=== PATIENT | male | born 1970 | race Caucasian/White ===

== ENCOUNTER 2023-03-20 06:41 | Outpatient (OUT) | payer OTHER, SELFPAY ==
[2023-03-20 07:44] LABS: Basophils Absolute Auto 0.1 10^3/uL (0.0-0.1); Eosinophils Absolute Auto 0.3 10^3/uL (0.0-0.7); Eosinophils Percent Auto 6.4 % (0.9-7.0); Hematocrit 41.1 % (42.0-54.0); Hemoglobin 13.9 g/dL (14.0-18.0); Immature Granulocytes Abs Auto 0.01 10^3/uL (0.00-0.03); Immature Granulocytes Pct Auto 0.2 % (0.0-0.5); Lymphocytes Absolute Auto 1.6 10^3/uL (1.2-3.8); Lymphocytes Percent Auto 31.8 % (20.5-60.0); Mean Corpuscular HGB Conc 33.8 g/dL (29.9-35.2); Mean Corpuscular Volume 85.8 fL (80.0-94.0); Mean Platelet Volume 9.6 fL (9.5-13.5); Monocytes Absolute Auto 0.6 10^3/uL (0.3-0.8); Monocytes Percent Auto 10.9 % (1.7-12.0); Neutrophils Absolute Auto 2.6 10^3/uL (1.4-6.5); Neutrophils Percent Auto 49.7 % (43.0-75.0); Platelet Count 157 10^3/uL (150-450); Red Blood Count 4.79 10^6/uL (4.70-6.10); Red Cell Distribution Width 13.5 % (11.0-15.0); White Blood Count 5.1 10^3/uL (4.0-11.0)
[2023-03-20 08:05] LABS: Alanine Aminotransferase 102 U/L (16-63); Albumin Globulin Ratio 0.9; Albumin Level 3.6 g/dL (3.4-5.0); Alkaline Phosphatase 57 U/L (46-116); Anion Gap 10.7; Aspartate Amino Transferase 67 U/L (15-37); Bilirubin Total 0.9 mg/dL (0.2-1.0); Calcium 8.7 mg/dL (8.5-10.1); Chloride 101 mmol/L (98-107); Estimated GFR (African America >60 (>=60); Estimated GFR (Non-African Ame >60 (>=60); Globulin 3.8 g/dL; Glucose 96 mg/dL (74-106); Potassium 3.7 mmol/L (3.5-5.1); Sodium 139 mmol/L (136-145); Total Protein 7.4 g/dL (6.4-8.2)
== END 2023-03-20 06:42 | disposition home or self-care (01) ==
LOC: LAB 06:45
PROVIDERS: PCP Internal Medicine; Visit Provider Internal Medicine
DX: Z00.00 Encounter for general adult medical examination without abnormal findings (principal); Z12.5 Encounter for screening for malignant neoplasm of prostate
CPT/HCPCS: 36415; 80053; 85025; G0103

== ENCOUNTER 2023-09-23 06:22 | Outpatient (OUT) | payer OTHER, SELFPAY ==
--- OUTSIDE RECORDS SUMMARY | 2023-09-23 06:26 | XMS_ITS | CCD ---
Author Organization [facility] Care Team Providers Care Entertainment Agent Name Role Phone Nohelia Adam Primary Care Provider [phone] OTILIO GARCIA Referring Unavailable NOHELIA ADAM Primary Care Unavailable NOHELIA ADAM Primary Care Unavailable NOHELIA ADAM Referring Unavailable NOHELIA ADAM Primary Care Unavailable NAZEMI, MEHRAN I Referring Unavailable NAZEMI, MEHRAN I Attending Unavailable NADJA, MEHRAN I Admitting Unavailable NOHELIA ADAM Primary Care Unavailable NOHELIA ADAM Primary Care Unavailable NAZEMI, MEHRAN I Referring Unavailable Lydia Dueñas Unavailable Medications Current Medications Medication Drug Class(es) Dates Sig (Normalized) Sig (Original) acetaminophen 325 mg / HYDROcodone bitartrate 5 mg oral tablet (1 source) Opioid Agonist Start: 06-15-2020 End: 06-18-2020 take 1 tablet by mouth every four hours as needed for pain, then take 1 tablet by mouth as needed for pain HYDROcodone-acetami nophen (NORCO) 5-325 MG per tablet Indications: Acute postoperative pain Take 1 tablet by mouth every 4 hours as needed for Pain for up to 3 days. Intended supply: 3 days. Take lowest dose possible to manage pain 18 tablet 0 06/15/2020 06/18/2020 Active Aspir-81 (1 source) Aspir-81 Active aspirin 81 mg oral tablet (5 sources) Platelet Aggregation Inhibitor, Nonsteroidal Anti-inflammatory Drug take 1 tablet by mouth once daily aspirin 81 MG tablet Take 81 mg by mouth daily 0 Active calcium chloride 0.0014 meq/ml / potassium chloride 0.004 meq/ml / sodium chloride 0.103 meq/ml / sodium lactate 0.028 meq/ml injectable solution (2 sources) Start: 06-15-2020 lactated ringers infusion 2 ml fentaNYL 0.05 mg/ml injection (2 sources) Opioid Agonist Start: 06-15-2020 50 mcg, Intravenous, EVERY 5 MIN PRN, Pain Severe (7-10), Starting Laura 06/15/20 at 1214, For 4 doses Phase I - Initial therapy for severe pain. PACU only Start: 06-15-2020 25 mcg, Intrav enous, EVERY 5 MIN PRN, Pain Moderate (4-6), Starting Laura 06/15/20 at 1214, For 4 doses Phase I - Initial therapy for moderate pain. PACU only fexofenadine / Pseudoephedrine (5 sources) alpha-Adrenergic Agonist, Histamine-1 Receptor Antagonist Fexofenadine-Pseudoe phedrine (HOANG-D PO) Take by mouth daily 0 Active Fexofenadine-Pse udoephedrine (HOANG-D PO) Take by mouth daily as needed 0 Active fluticasone propionate 0.05 mg/actuat metered dose nasal spray (5 sources) Corticosteroid fluticasone (SHANNON NASE) 50 MCG/ACT nasal spray 1 spray by Nasal route 2 times daily 0 Active fluticasone (SHANNON NASE) 50 MCG/ACT nasal spray 1 spray by Nasal route daily 0 Active hydroCHLOROthiazide 25 mg / lisinopril 20 mg oral tablet (6 sources) Thiazide Diuretic, Angiotensin Converting Enzyme Inhibitor Start: 05-11-2020 take 1 tablet by mouth once daily lisinopril-hydroCHLOROthiazide (PRINZIDE;ZESTORETIC) 20-25 MG per tablet TAKE 1 TABLET BY MOUTH DAILY 90 tablet 3 05/11/2020 Active Lisinopril-hydro CHLOROthiazide 20-25 MG (Prior Auth#:[id number]) Oral for 90 Active omeprazole 20 mg delayed release oral capsule (5 sources) Proton Pump Inhibitor omeprazole (PRILOSEC) 20 MG capsule Take 20 mg by mouth as needed 0 Active ondansetron 4 mg oral tablet (2 sources) Serotonin-3 Receptor Antagonist Start: take 1 tablet by mouth every eight hours as needed for nausea ondansetron (ZOFRAN) 4 MG tablet Take 1 tablet by mouth every 8 hours as needed for Nausea or Vomiting 15 tablet 0 06/15/2020 Active Start: 06-15-2020 End: 06-15-2020 4 mg, Intravenous, ONCE PRN, Nausea, Starting Laura 06/15/20 at 1214, For 1 dose Initial antiemetic therapy. PACU only Completed/Discontinued Medications Medication Drug Class(es) Dates Sig (Normalized) Sig (Original) acetaminophen 325 mg oral tablet (1 source) Start: 06-15-2020 End: 06-15-2020 acetaminophen (TYLENOL) tablet 650 mg ceFAZolin 2000 mg injection (1 source) Cephalosporin Antibacterial Start: 06-15-2020 End: 06-15-2020 ceFAZolin (ANCEF) 2 g in dextrose 3 % 50 mL IVPB (duplex) dimenhyDRINATE 50 mg oral tablet (1 source) Start: 06-15-2020 End: 06-15-2020 dimenhyDRINATE (DRAMAMINE) tablet 50 mg iopamidol (ISOVUE-370) 76 % injection 18 mL (1 source) Start: 05-16-2020 End: 05-16-2020 iopamidol (ISOVUE-370) 76 % injection 18 mL oxyCODONE hydrochloride 5 mg oral tablet (1 source) Opioid Agonist Start: 06-15-2020 End: 06-15-2020 take 5 mg by mouth once as needed for pain 5 mg, Oral, ONCE PRN, Pain Moderate (4-6), Starting Laura 06/15/20 at 1214, For 1 dose PHASE II PACU only Problems Active Problems Problem Classification Problem Date Documented Date Episodic/Chronic Abdominal hernia (4 sources) Hernia of anterior abdominal wall; Translations: [Bilateral inguinal hernia] Onset: 06-15-2020 06-15-2020 Episodic Abdominal pain (1 source) Left lower quadrant pain; Translations: [Left lower quadrant pain] Episodic Esophageal disorders (5 sources) Gastroesophageal reflux disease; Translations: [GERD (gastroesophageal reflux disease)] 09-14-2015 Chronic Essential hypertension (5 sources) Hypertensive disorder; Translations: [Hypertension] 09-14-2015 Chronic Other nervous system disorders (1 source) Acute postoperative pain; Translations: [Acute postoperative pain] Episodic Other upper respiratory disease (5 sources) Allergic rhinitis; Translations: [Allergic rhinitis] 09-14-2015 Chronic Past or Other Problems Problem Classification Problem Date Documented Da te Episodic/Chronic Immunizations and screening for infectious disease (1 source) Contact with and (suspected) exposure to other viral communicable diseases Onset: 09-14-2021 Resolved: 09-14-2021 Episodic Unclassified (7 sources) Patient encounter status; Translations: [Colon cancer screening] Onset: 11-22-2018 Resolved: 01-03-2019 01-03-2019 Viral infection (1 source) COVID-19 Onset: 09-14-2021 Resolved: 09-14-2021 Results Test Name Value Interpretation Reference Range Facility COMPREHENSIVE METABOLIC PANE L WITH GFRon 04-27-2022 Albumin [Mass/Vol] 4.2 g/dL Normal 3.5-5.2 [facility] ALK PHOS 56 U/L Normal 40-121 [facility] ALT [Catalytic activity/Vol] 73 U/L High 5-50 [facility] Anion gap [Moles/Vol] 10.0 mmol/L Normal 7.0-16.0 [facility] Comment on above: Result Comment: Please note new reference range effective 2021 AST-SGOT 44 U/L Normal 9-50 [facility] Bilirubin.direct [Mass/Vol] 0.6 mg/dL Normal <=1.2 [facility] Calcium [Mass/Vol] 9.4 mg/dL Normal 8.5-10.5 [facility] Chloride [Moles/Vol] 102 mmol/L Normal 95-107 [facility] CO2 [Moles/Vol] 29 mmol/L Normal 19-31 [facility] Creatinine [Mass/Vol] 1.13 mg/dL Normal 0.80-1.40 [facility] GFR/1.73 sq M.predicted among non-blacks MDRD (S/P/Bld) [Vol rate/Area] 78 mL/min/{1.73_m2} Normal >60 [facility] Glucose [Mass/Vol] 86 mg/dL Normal 70-99 [facility] Potassium [Moles/Vol] 3.9 mmol/L Normal 3.5-5.4 [facility] Protein [Mass/Vol] 6.8 g/dL Normal 6.1-8.3 [facility] Sodium [Moles/Vol] 141 mmol/L Normal 133-146 [facility] Urea nitrogen [Mass/Vol] 19 mg/dL Normal 6-20 [facility] PSA, 3RD GENERATIONon 2021 PSA, 3RD GENERATION 0.45 ng/mL Normal <=4.00 [facility] Comment on above: Result Comment: NOTE: Methodology is Michelle Jeron[employer] Electrochemiluminescence Immunoassay traceable to WHO reference standard 96/760. Pathology [employer] [address] [place] [address] CLIA No. [id number] CAP Accreditation No. [id number] Project Management Advisor: Mercedes Smith M.D. CBC W/AUTO DIFFon 04-26-2022 ABS NEUTROPHILS 2.56 K/uL Normal 1.50-7.50 [facility] Basophils (Bld) [#/Vol] 0.05 10*3/uL Normal 0.00-0.20 [facility] Basophils/100 WBC (Bld) 1.0 % Normal [facility] Eosinophils (Bld) [#/Vol] 0.36 10*3/uL Normal 0.00-0.50 [facility] Eosinophils/100 WBC (Bld) 6.9 % Normal [facility] Erythrocyte distribution width (RBC) [Ratio] 14.1 % Normal 11.5-15.0 [facility] Hematocrit (Bld) [Volume fraction] 38.9 % Low 40.0-51.0 [facility] Hemoglobin (Bld) [Mass/Vol] 13.2 g/dL Low 13.5-17.0 [facility] Lymphocytes (Bld) [#/Vol] 1.68 10*3/uL Normal 1.00-4.00 [facility] Lymphocytes/100 WBC (Bld) 32.3 % Normal [facility] MCH (RBC) [Entitic mass] 29.1 pg Normal 25.0-33.0 [facility] MCHC (RBC) [Mass/Vol] 33.9 g/dL Normal 31.0-36.0 [facility] MCV (RBC) [Entitic vol] 85.9 fL Normal 80.0-99.0 [facility] Monocytes (Bld) [#/Vol] 0.54 10*3/uL Normal 0.20-1.00 [facility] Monocytes/100 WBC (Bld) 10.4 % Normal [facility] Neutrophils/100 WBC (Bld) 49.2 % Normal [facility] Platelet mean volume (Bld) [Entitic vol] 10.4 fL Normal 9.3-13.0 [facility] Platelets (Bld) [#/Vol] 176 10*3/uL Normal 130-400 [facility] RBC (Bld) [#/Vol] 4.53 10*6/uL Normal 4.50-6.10 [facility] WBC (Bld) [#/Vol] 5.2 10*3/uL Normal 3.5-11.0 [facility] COVID Quick Testingon 2021 Result Positive [employer] Other Surgical Pathologyon Surgical Pathology (NOTE) -- Diagnosis -- LEFT SPERMATIC CORD SOFT TISSUE, EXCISION:-LIPOMA. Denton Chatman M.D Electronically Signed Out tanna06/19/2020 Clinical Information Pre-op Diagnosis: BILATERAL INGUINAL HERNIA Operative Findings: LARGE LEFT SPERMATIC CORD LIPOMA Operation Performed: HERNIA INGUINAL REPAIR LAPAROSCOPIC ROBOTIC WITH MESH, TESTICULAR LESION BIOPSY EXCISION OF LARGE LEFT CORD LIPOMA Source of Specimen 1: LARGE LEFT SPERMATIC CORD LIPOMA Gross Description WAYLON MADRIGAL, LARGE LEFT SPERMATIC CORD LIPOMA 9.5 x 4.5 x 2.0 cm portio of lobular fatty tissue with no hemorrhage or necrosis. Home Improvement Contractor sections 1cs. tm Microscopic Description Microscopic examination performed. SURGICAL PATHOLOGY CONSULTATION Patient Name: WAYLON MADRIGAL. [facility] Rec: [id number] Path Number: [id number] [facility] CONSULTING PATHOLOGISTS [facility] [address] [place] [id number] [facility] Comment on above: Performed By: #### P PPVS #### [address] [id number] Build Engineer: Myles Fraser MD COVID-19on 06-11-2020 Source .NASOPHARYNGEAL SWAB [place] [id number] 06-11-2020 SARS-CoV-2 Normal [place], [place] Comment on above: Performed By: #### C OVID #### [address] [id number] Build Engineer: Myles Fraser MD [address] [place] [address] Build Engineer: Denton Chatman MD SARS-CoV-2 Not Detected Normal [facility] [place], [place] Comment on above: The specimen is NEGATIVE for SARS-CoV-2, the novel coronavirus associated with COVID-19. A negative result does not rule out COVID-19. [employer] SARS-CoV-2 for use on the Jeron[employer]/8800 Systems is a real-time RT-PCR test intended for the qualitative detection of nucleic acids from SARS-CoV-2 in clinician-collected nasal, nasopharyngeal, and oropharyngeal swab specimens from individuals who meet COVID-19 clinical and/or epidemiological criteria. [employer] SARS-CoV-2 is for use only under Emergency Use Authorization (EUA) in laboratories certified under Clinical Laboratory Improvement Amendments of 1988 (CLIA), 42 U.S.C. 263a, that meet requirements to perform high or moderate complexity tests. An individual without symptoms of COVID-19 and who is not shedding SARS-CoV-2 virus would expect to have a negative (not detected) result in this assay. Fact sheet for Healthcare Providers: https://www.fda.gov/media/399727/download Fact sheet for Patients: https://www.fda.gov/media/609066/download METHODOLOGY: RT-PCR Result Comment: The specimen is NEGATIVE for SARS-CoV-2, the novel coronavirus associated with COVID-19. A negative result does not rule out COVID-19. [employer]imo SARS-CoV-2 for use on the Jeronimo 6800/8800 Systems is a real-time RT-PCR test intended for the qualitative detection of nucleic acids from SARS-CoV-2 in clinician-collected nasal, nasopharyngeal, and oropharyngeal swab specimens from individuals who meet COVID-19 clinical and/or epidemiological criteria. [employer] SARS-CoV-2 is for use only under Emergency Use Authorization (EUA) in laboratories certified under Clinical Laboratory Improvement Amendments of 1988 (CLIA), 42 U.S.C. ?263a, that meet requirements to perform high or moderate complexity tests. An individual without symptoms of COVID-19 and who is not shedding SARS-CoV-2 virus would expect to have a negative (not detected) result in this assay. Fact sheet for Healthcare Providers: https://www.fda.gov/media/673413/download Fact sheet for Patients: https://www.fda.gov/media/705112/download METHODOLOGY: RT-PCR Performed By: #### C OVID #### [facility] [address] [place] [address] Build Engineer: Myles Fraser MD [facility] [address] [place] [address] [place] [address] Build Engineer: Denton Chatman MD SARS-CoV-2, Rapid Normal [place], [place] Comment on above: Performed By: #### C OVID #### [facility] [address] [place] [address] Build Engineer: Myles Fraser MD [address] [place] [address] Build Engineer: Denton Chatman MD [id number] 06-09-2020 SARS-CoV-2 Source .NASOPHARYNGEAL SWAB Normal [facility] Comment on above: Performed By: #### C OVID #### [facility] [address] [place] [address] Build Engineer: Myles Fraser MD [address] [place] [address] Build Engineer: Denton Chatman MD Basic Metabolic Panelon Anion gap [Moles/Vol] 10 mmol/L 9 - 17 mmol/L [place] Bun/Cre Ratio [address] [place], [place] Calcium [Mass/Vol] 9.7 mg/dL 8.6 - 10.4 mg/dL [place] Chloride [Moles/Vol] 97 mmol/L Low 98 - 107 mmol/L [place] CO2 [Moles/Vol] 30 mmol/L 20 - 31 mmol/L [place] Creatinine [Mass/Vol] 1.27 mg/dL High 0.7 - 1.2 mg/dL [place] GFR >60 >60 mL/min [place] GFR Non- 60 mL/min Low >60 [place] Glucose [Mass/Vol] 83 mg/dL 70 - 99 mg/dL [place] Interpretation and review of laboratory results Abnormal [place] Potassium [Moles/Vol] 3.8 mmol/L 3.7 - 5.3 mmol/L [place] Sodium [Moles/Vol] 137 mmol/L 135 - 144 mmol/L [place] Urea nitrogen [Mass/Vol] 21 mg/dL High 6 - 20 mg/dL [place] Basic Metabolic Profon 06-07 (cont.) Normal [facility] Comment on above: Result Comment: Aver age GFR for 50-59 years old: 93 mL/min/1.73sq m Chronic Kidney Disease: <60 mL/min/1.73sq m Kidney failure: <15 mL/min/1.73sq m eGFR calculated using average adult body mass. Additional eGFR calculator available at: http://www.TeachersMeet.com/multiple_crcl_2012.htm Performed By: #### B MP #### [facility] [address] [place] [address] [place] [address] Build Engineer: Denton Chatman MD Anion gap [Moles/Vol] 10 mmol/L Normal - [facility] Comment on above: Performed By: #### B MP #### [facility] [address] [place] [address] Build Engineer: Denton Chatman MD BUN/CRE Ratio 17 Normal - [facility] Comment on above: Performed By: #### B MP #### [facility] [address] [place] [address] Build Engineer: Denton Chatman MD Calcium [Mass/Vol] 9.7 mg/dL Normal 8.6-10.4 [facility] Comment on above: Performed By: #### B MP #### [facility] [address] [place] [id number] Build Engineer: Denton Chatman MD Chloride [Moles/Vol] 97 mmol/L Low 98-107 [facility] Comment on above: Performed By: #### B MP #### [facility] [address] [place], [place] [id number] Build Engineer: Denton Chatman MD CO2 [Moles/Vol] 30 mmol/L Normal 20-31 [facility] Comment on above: Performed By: #### B MP #### [facility] [address] [place], [place] [id number] Build Engineer: Denton Chatman MD Creatinine [Mass/Vol] 1.27 mg/dL High 0.70-1.20 [facility] Comment on above: Performed By: #### B MP #### [facility] [address] [place], [place] [id number] Build Engineer: Denton Chatman MD GFR, Amer >60 Normal >60 [facility] Comment on above: Performed By: #### B MP #### [facility] [address] [place], [place] [id number] Build Engineer: Denton Chatman MD GFR,non Amer 60 mL/min Low >60 [facility] Comment on above: Performed By: #### B MP #### [facility] [address] [place], [place] [id number] Build Engineer: Denton Chatman MD Glucose [Mass/Vol] 83 mg/dL Normal 70-99 [facility] Comment on above: Performed By: #### B MP #### [facility] [address] [place], [place] [id number] Build Engineer: Denton Chatman MD Potassium [Moles/Vol] 3.8 mmol/L Normal 3.7-5.3 [facility] Comment on above: Performed By: #### B MP #### [facility] [address] [place] [address] [place] [place], [place] [id number] Build Engineer: Denton Chatman MD Sodium [Moles/Vol] 137 mmol/L Normal 135-144 [facility] Comment on above: Performed By: #### B MP #### [address] [place] [id number] Build Engineer: Denton Chatman MD Staging: Normal [facility] Comment on above: Result Comment: Stag e 1: Some kidney damage normal GFR Stage 2: Mild kidney damage GFR 60-89 Stage 3: Moderate kidney damage GFR 30-59 Stage 4: Severe kidney damage GFR 15-29 Stage 5: Severe kidney damage GFR <15 ESRD - chronic treatment by dialysis or transplant Performed By: #### B MP #### [address] [place] [id number] Build Engineer: Denton Chatman MD Urea nitrogen [Mass/Vol] 21 mg/dL High 6-20 [facility] Comment on above: Performed By: #### B MP #### [address] [place] [address] Build Engineer: Denton Chatman MD Metabolic Panelon 06-07-2020 GFR/1.73 sq M predicted among non-blacks MDRD (S/P/Bld) [Vol rate/Area] [place], [place] Comment on above: Stage 1: Some kidney damage normal GFR Stage 2: Mild kidney damage GFR 60-89 Stage 3: Moderate kidney damage GFR 30-59 Stage 4: Severe kidney damage GFR 15-29 Stage 5: Severe kidney damage GFR <15 ESRD - chronic treatment by dialysis or transplant Average GFR for 50-5 9 years old: 93 mL/min/1.73sq m Chronic Kidney Disease: <60 mL/min/1.73sq m Kidney failure: <15 mL/min/1.73sq m eGFR calculated using average adult body mass. Additional eGFR calculator available at: http://www.[employer].HelioVolt/multiple_crcl_2012.htm CT ABDOMEN PELVIS WO CONTRAS Ton 05-16-2020 CT ABDOMEN PELVIS WO CONTRAST EXAMINATION: CT OF THE ABDOMEN AND PELVIS WITHOUT CONTRAST 05/16/2020 9:10 am TECHNIQUE: CT of the abdomen and pelvis was performed without the administration of intravenous contrast. Multiplanar reformatted images are provided for review. Dose modulation, iterative reconstruction, and/or weight based adjustment of the mA/kV was utilized to reduce the radiation dose to as low as reasonably achievable. COMPARISON: None. HISTORY: ORDERING SYSTEM PROVIDED HISTORY: Left lower quadrant pain TECHNOLOGIST PROVIDED HISTORY: FINDINGS: Lower Chest: No acute findings. Organs: Suboptimal evaluation due to lack of IV contrast. Diffuse hepatic steatosis. Gallbladder, spleen, pancreas and adrenal glands all appear unremarkable. Kidneys demonstrate no evidence of stone or hydronephrosis. Abdominal aorta appears normal in caliber. GI/Bowel: Stomach appears grossly unremarkable small bowel appears nondilated. Oral contrast reached the distal small bowel. Appendix is normal. No acute colonic abnormality. A portion of sigmoid colon is seen at the entrance of the left inguinal canal with associated fat filled left-sided inguinal hernia. No CT evidence of acute complication is seen. Pelvis: Uncomplicated right-sided fat filled inguinal hernia. Urinary bladder is grossly unremarkable. Prostate gland is at the upper limits normal in size. Peritoneum/Retroperitoneum: No free air, free fluid or lymphadenopathy. Bones/Soft Tissues: Abdominal wall demonstrates no acute findings. Osseous structures demonstrate degenerative change. IMPRESSION: 1. No acute intra-abdominal process. 2. Bilateral fat filled inguinal areas without CT evidence of acute complication. A portion of the sigmoid colon is seen at the entrance of the left inguinal canal. 3. Diffuse hepatic steatosis. Interpreted by: Omid Mccord Jr., DO Signed by: Omid Mccord Jr., DO 05/16/20 Final result Normal [facility] CT ABDOMEN PELVIS WO CONTRAS T Additional Contrast? Oralon 05-16-2020 1. No acute intra-ab dominal process. 2. Bilateral fat filled inguinal areas without CT evidence of acute complication. A portion of the sigmoid colon is seen at the entrance of the left inguinal canal. 3. Diffuse hepatic steatosis. [facility], [place] EXAMINATION: CT OF T HE ABDOMEN AND PELVIS WITHOUT CONTRAST 05/16/2020 9:10 am TECHNIQUE: CT of the abdomen and pelvis was performed without the administration of intravenous contrast. Multiplanar reformatted images are provided for review. Dose modulation, iterative reconstruction, and/or weight based adjustment of the mA/kV was utilized to reduce the radiation dose to as low as reasonably achievable. COMPARISON: None. HISTORY: ORDERING SYSTEM PROVIDED HISTORY: Left lower quadrant pain TECHNOLOGIST PROVIDED HISTORY: FINDINGS: Lower Chest: No acute findings. Organs: Suboptimal evaluation due to lack of IV contrast. Diffuse hepatic steatosis. Gallbladder, spleen, pancreas and adrenal glands all appear unremarkable. Kidneys demonstrate no evidence of stone or hydronephrosis. Abdominal aorta appears normal in caliber. GI/Bowel: Stomach appears grossly unremarkable small bowel appears nondilated. Oral contrast reached the distal small bowel. Appendix is normal. No acute colonic abnormality. A portion of sigmoid colon is seen at the entrance of the left inguinal canal with associated fat filled left-sided inguinal hernia. No CT evidence of acute complication is seen. Pelvis: Uncomplicated right-sided fat filled inguinal hernia. Urinary bladder is grossly unremarkable. Prostate gland is at the upper limits normal in size. Peritoneum/Retroperitoneum: No free air, free fluid or lymphadenopathy. Bones/Soft Tissues: Abdominal wall demonstrates no acute findings. Osseous structures demonstrate degenerative change. [facility] [place], [place] Fausto, [employer] Incoming R adiant Results From [employer] - 05/16/2020 9:50 AM EST EXAMINATION: CT OF THE ABDOMEN AND PELVIS WITHOUT CONTRAST 05/16/2020 9:10 am TECHNIQUE: CT of the abdomen and pelvis was performed without the administration of intravenous contrast. Multiplanar reformatted images are provided for review. Dose modulation, iterative reconstruction, and/or weight based adjustment of the mA/kV was utilized to reduce the radiation dose to as low as reasonably achievable. COMPARISON: None. HISTORY: ORDERING SYSTEM PROVIDED HISTORY: Left lower quadrant pain TECHNOLOGIST PROVIDED HISTORY: FINDINGS: Lower Chest: No acute findings. Organs: Suboptimal evaluation due to lack of IV contrast. Diffuse hepatic steatosis. Gallbladder, spleen, pancreas and adrenal glands all appear unremarkable. Kidneys demonstrate no evidence of stone or hydronephrosis. Abdominal aorta appears normal in caliber. GI/Bowel: Stomach appears grossly unremarkable small bowel appears nondilated. Oral contrast reached the distal small bowel. Appendix is normal. No acute colonic abnormality. A portion of sigmoid colon is seen at the entrance of the left inguinal canal with associated fat filled left-sided inguinal hernia. No CT evidence of acute complication is seen. Pelvis: Uncomplicated right-sided fat filled inguinal hernia. Urinary bladder is grossly unremarkable. Prostate gland is at the upper limits normal in size. Peritoneum/Retroperitoneum: No free air, free fluid or lymphadenopathy. Bones/Soft Tissues: Abdominal wall demonstrates no acute findings. Osseous structures demonstrate degenerative change. IMPRESSION: 1. No acute intra-abdominal process. 2. Bilateral fat filled inguinal areas without CT evidence of acute complication. A portion of the sigmoid colon is seen at the entrance of the left inguinal canal. 3. Diffuse hepatic steatosis. [facility] [place] Vital Signs Date Time Vital Sign Value Performing Clinician Facility 09-14-2021 13:50-0400 Body height 180.34 cm Lydia Dueñas Other [employer] Other 09-14-2021 13:50-0400 Body mass index (BMI) [Ratio] 29.98 kg/m2 Lydia Dueñas Other [employer] Other 09-14-2021 13:50-0400 Body temperature 99.5 [degF] Lydia uDeñas Other [employer] Other 09-14-2021 13:50-0400 Body weight 97.52 kg Lydia Dueñas Other [employer] Other 09-14-2021 13:50-0400 Respiratory rate 18 /min Lydia Duñeas Other [employer] Other 09-14-2021 13:50-0400 SaO2% (BldA) [Mass fraction] 97 % Lydia Dueñas Other [employer] Other 06-15-2020 16:30-0500 BP Diastolic 64 mm[Hg] [facility] [place] 06-15-2020 16:30-0500 BP Systolic 112 mm[Hg] [facility] , [place] 06-15-2020 16:30-0500 Pulse (Heart Rate) 80 /min [facility] [place] 06-15-2020 16:30-0500 Pulse Oximetry 96 % Mehran Márquez [facility] , [place] 06-15-2020 16:30-0500 Respiratory Rate 18 /min Mehran Márquez [facility], [place] 06-15-2020 16:00-0500 Body Temperature 97.5 [degF] [facility] [place] 06-15-2020 10:30-0500 BMI (Body Mass Index) 30.24 kg/m2 [facility] [place] 06-15-2020 10:30-0500 Body weight 98.34 kg [place] 06-15-2020 10:30-0500 Height 180.3 cm [place] Encounters Encounter Date Encounter Type Care Provider Facility Start: 09-14-2021 End: 09-14-2021 ambulatory Lydia Dueñas Other [employer] Other Start: 09-14-2021 Office outpatient vi sit 15 minutes Lydia Dueñas [facility] [place] Start: 06-15-2020 End: 06-15-2020 Patient encounter procedure [facility] Start: 06-15-2020 End: 06-15-2020 Subsequent hospital visit by physician Mehran Nieto Phone: [facility] OR Comment on above: Acute postoperative pain (Primary Dx) Start: 06-09-2020 End: 06-14-2020 Patient encounter procedure OTILIO Guerrero GARCIA [facility] Start: 06-09-2020 End: 06-13-2020 Subsequent hospital visit by physician Radha Covid19 Pat Screening Schedule [facility] PRE ADMIT Comment on above: Preoperative testing Start: 06-07-2020 End: 06-08-2020 Patient encounter procedure NOHELIA Gutierrez [facility] Start: 06-07-2020 End: 06-07-2020 Subsequent hospital visit by physician Nohelia [facility] Comment on above: Non-recurrent bilate ral inguinal hernia without obstruction or gangrene; Pre-op testing Start: 05-16-2020 End: 05-19-2020 Patient encounter procedure NOHELIA ADAM [facility] Start: 05-16-2020 End: 2020 Subsequent hospital visit by physician [facility] Cat Scan Room [facility] CT Scan Comment on above: Left lower quadrant pain; Ventral hernia without obstruction or gangrene Procedures Date Procedure Procedure Detail Performing Clinician Start: 06-09-2020 COVID-19 Dilshad Ramónu regui Work Phone: Start: 06-07-2020 Basic metabolic pane l calcium total Mehran I Nazemi Work Phone: Start: 06-07-2020 Ecg routine ecg w/le ast 12 lds w/i&r Mehran I Nazemi Work Phone: Start: 05-16-2020 Ct abdomen & pelvis w/o contrast material OTILIO GARCIA Start: 05-16-2020 Ct abdomen & pelvis w/o contrast material Nohelia Adam Work Phone: Plan of Treatment Date Care Activity Detail Author Start: 12-07-2028 Screening for malign ant neoplasm of colon Colon cancer screen colonoscopy [place], [place] Start: 11-12-2028 DTaP/Tdap/Td vaccine (2 - Td) DTaP/Tdap/Td vaccine (2 - Td) [place] Start: 09-09-2023 Lipid panel Lipid screen [place], [place] Start: 06-07-2021 Creatinine measurement Creatinine mo [place]itoring [place] Start: 06-07-2021 Potassium monitoring Potassium monit oring [place] Start: 01-01-2021 End: 01-01-2021 Office Visit 01/01/2021 Office Visit Internal Medicine Nohelia Adam MD [address] [place] [address] Nash Adam MD [facility] Start: 06-23-2020 End: 06-23-2020 Office Visit 06/23/2020 Office Visit General Surgery Mehran Márquez I, DO [address] [place] [address] [phone] [facility] Start: 06-15-2020 End: 06-15-2020 Hospital Encounter [facility] Comment on above: HERNIA INGUINAL REPA IR LAPAROSCOPIC ROBOTIC-WITH MESH Start: 02-01-2020 Influenza vaccination Flu vaccine (# 1) [place] Start: 09-09-2019 Creatinine measurement Creatinine mo [place]itoring [place] Start: 09-09-2019 Potassium monitoring Pot[place] monit [place]ing [place] Start: 2018 Shingles Vaccine (1 of 2) Shingles Vaccine (1 of 2) [place] Start: 1970 Hepatitis C screening Hepatitis C sc reen [place] EKG 12 Lead EKG 12 Lead ECG Routine 06/07/2020 3:54 PM EST [place] O[place] therapy [[facility] [place] Set] Initiate Oxygen Therapy Protocol Respiratory Care Routine Daily until discontinued starting 06/15/2020 [place] Comment on above: Daily until disconti nued starting 06/15/2020 Phase I & II - meter ed glucose Phase I & II - metered glucose Point of Care Testing Routine As Needed until discontinued starting 06/15/2020 [place] Comment on above: As Needed until disc ontinued starting 06/15/2020 Surgical Pathology Surgical Path ology Lab Routine Release Upon Ordering for 1 Occurrences starting 06/15/2020 [place] Comment on above: Release Upon Orderin g for 1 Occurrences starting 06/15/2020 Immunizations Immunization Date Immunization Notes Care Provider Fa syty 11-12-2018 tetanus toxoid, redu zamzam diphtheria toxoid, and acellular pertussis vaccine, adsorbed [place], [place] 07-31-2008 tetanus toxoid, unspecified formulation [place], [place] Payers Date Payer Category Payer Unknown [id number] [id number] 1968 Unknown [id number] [id number] 1968 Unknown [id number] [id number] [id number] 1968 Unknown [id number] [id number] [id number] 1968 Unknown [id number] [id number] [id number] 1968 Unknown [id number] [id number] Social History Date Type Detail Facility Start: 05-08-2020 End: 06-15-2020 Tobacco smoking status NHIS Never [place]oker [place] Start: 05-08-2020 End: 06-15-2020 Tobacco use and exposure Never used [place] Start: 05-08-2020 End: 06-15-2020 Alcohol intake Current drinker of alcohol (finding) [place] Start: 12-23-2019 History SDOH Financial 5 [place] Start: 12-23-2019 History SDOH Food Worry 1 [place] Start: 12-23-2019 History SDOH Transpo rt Med 2 [place] Sex Assigned At [place] on file [place] Exposure to SARS-CoV -2 (event) Not sure [place] Sex Assigned At Male [place] Sex Assigned At Sex Assigned At Bir th [employer] Other Medical Equipment Procedure Code Equipment Code Equipment Origin al Text Equipment Identifier Dates Mesh Maria A L [id number] R Inguinal Wht Polypr Mfil [id number] Start: 06-15-2020 Mesh Maria A L [id number] L Inguinal Wht Polypr Mfil [id number] Start: 06-15-2020 Evaluation note 09-14-2021 Note Date & Type Note Facility 09-14-2021 Evaluation note Encounter Date Diagnosis Assessment Notes Aug, Contact with and (suspected) exposure to other viral communicable diseases (ICD-10 - Z20.828) Aug, COVID-19 (ICD-10 - U07.1) Drink plenty fluids, get plenty of rest. Take Tylenol Motrin for aches pains or fevers. Self quarantine until Friday. Follow-up with your family physician if no improvement in 2 to 3 days. Aug, Other Additional time spent conducting pre-visit phone call, screening for symptoms, instructions on social distancing, application and removal of PPE, and cleaning of examination room, equipment and supplies was preformed. Patient education given for testing methodology and results. Patient care instructions given in writting by [facility] Care At Home document. [employer] Other History general Narrative - Reported Note Date & Type Note Facility History general Narrative - Reported Type Medical History HTN (hypertension) Surgical History hernia repair 2019 [employer] Other Reason for Referral Status Reason Specialty Diagnoses / Procedures Referre d By Contact Referred To Contact Closed Radiology Diagnoses Left lower quadrant pain Ventral hernia without obstruction or gangrene Procedures CT ABDOMEN PELVIS WO CONTRAST Additional Contrast? Oral Nohelia Adam MD [id number] [facility] [address] Scan [address] [place] [address] Assessments Diagnosis Left lower quadrant pain Abdominal pain, left lower quadrant Ventral hernia without obstruction or gangrene Ventral hernia, unspecified, without mention of obstruction or gangrene Diagnosis Non-recurrent bilateral inguinal hernia without obstruction or gangrene Pre-op testing Preoperative examination, unspecified Diagnosis Preoperative testing Preoperative examination, unspecified Diagnosis Non-recurrent bilateral inguinal hernia without obstruction or gangrene- Primary Acute postoperative pain Other acute postoperative pain Advance Directives No Advanced Directives Records FoundDocuments on File Type Date Recorded Patient 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 Call the office to schedule your post-operative appointment with Dr. Márquez 1 week (next Friday) following your procedure. ? If you have the skin glue over your incisions, the glue will peel off in a couple of weeks. Do not pick at the glue, it can get itchy at times. DO NOT TAKE BABY ASPIRIN FOR A WEEK AT LEAST. Ok to take motrin as needed/as directed over the counter. May take Motrin at 8:30pm tonight, if needed. ? A small amount of swelling and bruising and puffiness of the groin and scrotum in men is to be expected. ? Call the office if you experience fevers over 101 or difficulty voiding. ? It is NORMAL for the scrotum and groin areas to be puffy and swollen and bruised. Wear the scrotal support for the first 24 hours please, ok to take off if you are uncomfortable with it. ? It is normal to feel some upper back pain/pain between the shoulder blades from the air in the belly- this goes away in 2-3 days and the more you walk around and take some deep breaths, it helps itdissolve faster ? You may shower after 24 hours after arriving home. Wash incisions gently, and pat them dry. Do not rub your incisions. Expect hardness and lumpiness around incisions ? General guidelines for activity: o Avoid strenuous activity or lifting anything heavier than 10 pounds for at least 3 weeks. o Weeks 4-6 no lifting over 20 pounds o Slower paced walking is encouraged. Ok to climb stairs o No prolonged standing or walking for more than 30-40 minutes for the first 2 weeks, sit and rest a bit in between o Do what is comfortable: stop and rest when you feel tired. ? Do NOT drive for one week and while taking your narcotic pain medicine. ? Take your pain medication as prescribed to relieve discomfort. ? Ice pack to areas of pain helps ? Take tylenol or motrin for minor pain ? Take the stool softener over the counter colace to prevent constipation. ? If you have not urinated in over 6 hours at home, you must get catheterized in ER or urgent care to avoid bladder retention/distention, it will potentially alter the meshes in place. Try to keep your bladder empty/urinate as much as you can within reason. ? Take Miralax or Magnesium Citrate or Milk of Magnesia if needing stronger laxative- take laxativeif no bowel movement 2-3 days after surgery SAME DAY SURGERY DISCHARGE INSTRUCTIONS 1. Do not drive or operate hazardous machinery for 24 hours. 2. Do not make important personal or business decisions for 24 hours. 3. Do not drink alcoholic beverages for 24 hours. 4. Do not smoke tobacco products for 24 hours. 5. Eat light foods (Jell-O, soups, etc....) and drink plenty of fluids (water, Sprite, etc...) up to 8 glasses per day, as you can tolerate. 6. Limit your activities for 24 hours. Do not engage in heavy work until your surgeon gives you permission. 7. Report the following signs or any questions regarding your physical condition to your surgeon immediately: Excessive swelling of, or around the wound area. Redness. Temperature of 100 degrees (F) or above. Excessive pain. 8. Call your surgeon for any questions regarding your surgery. documented in this encounter History of Present Illness * Mary Kelsey RN - 06/15/2020 4:40 PM EST Patient verbalizes readiness for discharge. Discharge instructions given to patient and responsibleadult, answered all questions, and verbalized understanding of discharge instructions. Discharge Criteria Inpatients must meet Criteria 1 through 7. All other patients are either YES or N/A. If a NO is chosen then Anesthesia or Surgeon must be notified. 1. Minimum 30 minutes after last dose of sedative medication, minimum 120 minutes after last dose of reversal agent. Yes 2. Systolic BP stable within 20 mmHg for 30 minutes & systolic BP between 90 & 180 or within 10 mmHg of baseline. Yes 3. Pulse between 60 and 100 or within 10 bpm of baseline. Yes 4. Spontaneous respiratory rate >/= 10 per minute. Yes 5. SaO2 >/= 95 or >/= baseline. Yes 6. Able to cough and swallow or return to baseline function. Yes 7. Alert and oriented or return to baseline mental status. Yes 8. Demonstrates controlled, coordinated movements, ambulates with steady gait, or return to baseline activity function. Yes 9. Minimal or no pain or nausea, or at a level tolerable and acceptable to patient. Yes 10. Takes and retains oral fluids as allowed. Yes 11. Procedural / perioperative site stable. Minimal or no bleeding. Yes 12. If GI endoscopy procedure, minimal or no abdominal distention or passing flatus. N/A 13. Written discharge instructions and emergency telephone number provided. Yes 14. Accompanied by a responsible adult. Yes * Myriam Pardo RN - 06/08/2020 10:39 AM EST Patient instructed on the pre-operative, intra-operative, and post-operative process. Patient instructed on NPO status. Medication instructions and Pre operative instruction sheet reviewed over the phone. Instructed pt to take Prilosec with a small sip of water prior to arriving to the hospital theday of surgery. Pt states he was instructed to stop taking aspirin per Dr. Márquez. documented in this encounter Additional Source Comments Reason for Visit (unrecogniz ed section and content) Status Reason Specialty Diagnoses / Procedures Referre d By Contact Referred To Contact Closed Radiology Diagnoses Left lower quadrant pain Ventral hernia without obstruction or gangrene Procedures CT ABDOMEN PELVIS WO CONTRAST Additional Contrast? Oral Nohelia Adam MD [id number] [facility] [address] Scan [address] [place] [address] Status Reason Specialty Diagnoses / Procedures Referre d By Contact Referred To Contact Diagnoses Bilateral inguinal hernia BILATERAL INGUINAL HERNIAS Procedures [place] LAP,INGUINAL HERNIA REPR,INITIAL HERNIA INGUINAL REPAIR LAPAROSCOPIC ROBOTIC-WITH MESH Mehran Márquez DO [address] [place] [address] [facility] (unrecognized sect ion and content) No Status Records FoundNo Status Records Found INFORMATION SOURCE (unrecogn ized section and content) DATE CREATED AUTHOR 06/19/2020 [facility] DATE CREATED AUTHOR AUTHOR'S ORGANIZ ATION 04/27/2022 [facility] Ordered Prescriptions (unrec ognized section and content) Prescription Sig Dispensed Refills Start Date End Da te ondansetron (ZOFRAN) 4 MG tablet Take 1 tablet by mouth every 8 hours as needed for Nausea or Vomiting 15 tablet 0 06/15/2020 HYDROcodone-acetaminophe n (NORCO) 5-325 MG per tabletIndications:Acute postoperative pain Take 1 tablet by mouth every 4 hours as needed for Pain for up to 3 days. Intended supply: 3 days. Take lowest dose possible to manage pain 18 tablet 0 06/15/2020 06/18/2020 FOR RECORDS PERTAINING TO PATIENTS WHO ARE OR HAVE BEEN ENROLLED IN A CHEMICAL DEPENDENCY/SUBSTANCEABUSE PROGRAM, SOME INFORMATION MAY BE OMITTED. This clinical summary was aggregated from multiple sources. Caution should be exercised in using it in the provision of clinical care. This summary normalizes information from multiple sources, and as a consequence, information in this document may materially change the coding, format and clinical context of patient data. In addition, data may be omitted in some cases. CLINICAL DECISIONS SHOULD BE BASED ON THE PRIMARY CLINICAL RECORDS. [facility] [employer] provides no warranty or guarantee of the accuracy or completeness of information in this document.
[2023-09-23 06:40] LABS: Basophils Absolute Auto 0.1 10^3/uL (0.0-0.1); Basophils Percent Auto 1.1 % (0.2-2.0); Eosinophils Absolute Auto 0.4 10^3/uL (0.0-0.7); Eosinophils Percent Auto 6.7 % (0.9-7.0); Hematocrit 38.9 % (42.0-54.0); Hemoglobin 13.1 g/dL (14.0-18.0); Lymphocytes Absolute Auto 1.8 10^3/uL (1.2-3.8); Lymphocytes Percent Auto 33.1 % (20.5-60.0); Mean Corpuscular HGB Conc 33.7 g/dL (29.9-35.2); Mean Corpuscular Hemoglobin 28.8 pg (25.9-34.0); Mean Corpuscular Volume 85.5 fL (80.0-94.0); Mean Platelet Volume 9.1 fL (9.5-13.5); Monocytes Absolute Auto 0.6 10^3/uL (0.3-0.8); Monocytes Percent Auto 10.3 % (1.7-12.0); Neutrophils Absolute Auto 2.6 10^3/uL (1.4-6.5); Neutrophils Percent Auto 48.8 % (43.0-75.0); Platelet Count 167 10^3/uL (150-450); Red Blood Count 4.55 10^6/uL (4.70-6.10); Red Cell Distribution Width 13.3 % (11.0-15.0); White Blood Count 5.4 10^3/uL (4.0-11.0)
[2023-09-23 08:06] LABS: Alanine Aminotransferase 80 U/L (16-63); Albumin Globulin Ratio 0.8; Albumin Level 3.4 g/dL (3.4-5.0); Alkaline Phosphatase 60 U/L (46-116); Anion Gap 13.4; Aspartate Amino Transferase 38 U/L (15-37); BUN Creatinine Ratio 19.2; Bilirubin Total 0.5 mg/dL (0.2-1.0); Calcium 9.3 mg/dL (8.5-10.1); Carbon Dioxide 28.1 mmol/L (21.0-32.0); Chloride 105 mmol/L (98-107); Chol HDL Ratio 3.3; Cholesterol 163 mg/dL (<=200); Estimated GFR (African America >60 (>=60); Estimated GFR (Non-African Ame >60 (>=60); Globulin 4.2 g/dL; Glucose 91 mg/dL (74-106); HDL Cholesterol 49 mg/dL (40-60); LDL Cholesterol Calculated 95.4 mg/dL; Potassium 3.5 mmol/L (3.5-5.1); Sodium 143 mmol/L (136-145); Total Protein 7.6 g/dL (6.4-8.2); Triglycerides 93 mg/dL (<=150); VLDL CHOLESTEROL 18.6 mg/dL
== END 2023-09-23 06:23 | disposition home or self-care (01) ==
LOC: LAB 06:23
PROVIDERS: PCP Internal Medicine; Visit Provider Internal Medicine
DX: R06.09 Other forms of dyspnea (principal)
CPT/HCPCS: 36415; 80053; 80061; 85025

== ENCOUNTER 2025-05-23 15:56 | Outpatient (OUT) | payer OTHER, SELFPAY ==
--- OUTSIDE RECORDS SUMMARY | 2025-05-19 15:45 | XMS_ITS | Encounter Summary ---
Author Organization [facility] Address [address], [address] [place] [address] Care Team Providers Care Laborer Tanbark Name Role Phone Kody Farnsworth MD Primary Care Provider [phone] Reason for Visit * ReasonCommentsFoot PainLt foot pain onset- Friday, pt denies any fall or injury, pain with walking and apply pressure in certain ways Encounter Details DateTypeDepartmentCare Team (Latest Contact Info)Iqwuboixxea88/18/2025 3:45 PM ESTOffice Visit CRika Farnsworth MD [facility] [address] [place] [id number] Carissa Forrester, ABIDA - SCRAP SEPARATOR [address] [place] [address] Left foot pain (Primary Dx) Social History Tobacco UseTypesPacks/DayYears UsedDateSmoking Tobacco: NeverSmokeless Tobacco: Never Tobacco Cessation:Counseling Given: Not Answered Alcohol UseStandard Drinks/WeekCommentsYes2 (1 standard drink = 0.6 oz pure alcohol)Overall Financial Resource Strain (CARDIA)AnswerDate RecordedHow hard is it for you to pay for the very basics like food, housing, medical care, and heating?Not hard at all04/19/2024HQ-2AnswerDate RecordedPHQ-9 Total Score0 04/18/2025PRAPARE - TransportationAnswerDate RecordedLack of Transportation (Medical)Not on file04/19/2024In the past 12 months, has lack of transportation kept you from meetings, work, or from getting things needed for daily living?No 04/19/2024Housing Stability Vital SignAnswerDate RecordedUnable to Pay for Housing in the Last YearNot on file12/09/2022Number of Places Lived in the Last YearNot on file12/09/2022In the last 12 months, was there a time when you did not have a steady place to sleep or slept in [place] (including now)?No 12/09/2022Housing Stability Vital SignAnswerDate RecordedIn the last 12 months, was there a time when you were not able to pay the mortgage or rent on time?No 04/18/2025Number of Times Moved in the Last YearNot on file04/18/2025t any time in the past 12 months, were you homeless or living in a custodial (including now)? No04/18/2025Hunger Vital SignAnswerDate RecordedWithin the past 12 months, you worried that your food would run out before you got the money to buymore.Never true04/18/2025Within the past 12 months, the food you bought just didn't last and you didn't have money to get more.Never true04/18/2025PRAPARE - TransportationAnswerDate RecordedIn the past 12 months, has lack of transportation kept you from medical appointments or from getting medications?No 04/18/2025In the past 12 months, has lack of transportation kept you from meetings, work, or from getting things needed for daily living?No04/18/2025HC UtilitiesAnswerDate RecordedIn the past 12 months has the [employer], gas, oil, or water [employer] threatened to shut off services in your home?No04/18/2025Sex and Gender InformationValueDate RecordedSex Assigned at RgpcbSaqx82/13/2021 5:13 PM ESTLegal DuuGgin1007/12/2012 1:18 PM ESTGender WrteacmvYsim29/13/2021 5:13 PM EST Sexual DqjurdjianuWzxkuelo58/13/2021 5:13 PM ESTdocumented as of this encounter Last Filed Vital Signs Vital SignReadingTime TakenCommentsBlood Wjbzezke625/8805/19/2025 3:36 PM EST Mtvsf052705/19/2025 3:36 PM ACURhcevqmxfdj17.9 ??C (98.5 ??F)05/19/2025 3:36 PM ESTRespiratory Rate--Oxygen Rfvqrawgvw32%05/19/2025 3:36 PM ESTInhaled Oxygen Concentration--Bhstns156.3 kg (225 lb 9.6 oz)05/19/2025 3:36 PM ENHYmeusk862.3 cm (5' 11 )05/19/2025 3:36 PM ESTBody Mass Index31.4605/19/2025 3:36 PM EST documented in this encounter Progress Notes * Carissa Forrester APRN - HIREN - 05/19/2025 3:45 PM EST Images from the original note were not included. Carissa Forrester CNP Office Note 05/19/25 No chief complaint on file. Subjective: Deniz Gonzales is a 55 y.o. male presenting today complaining of left foot pain that began on Friday. Denies injury or trauma. Describes the pain as if someone is driving a tack into the back of my foot. Pain is aggravated by movement and improved by rest. CURRENT ALLERGIES: Patient has no known allergies. SOCIAL HISTORY: Social History Tobacco Use Smoking status: Never Smokeless tobacco: Never Substance Use Topics Alcohol use: Yes Alcohol/week: 2.0 standard drinks of alcohol Types: 2 Cans of beer per week Drug use: Not Currently He has a current medication list which includes the following prescription(s): lisinopril-hydrochlorothiazide, fexofenadine-pseudoephedrine, omeprazole, aspirin, and fluticasone. Objective: There were no vitals taken for this visit. Physical Exam Vitals and nursing note reviewed. Constitutional: Appearance: Normal appearance. Cardiovascular: Rate and Rhythm: Normal rate and regular rhythm. Pulses: Normal pulses. Musculoskeletal: General: Tenderness present. Normal range of motion. Feet: Skin: General: Skin is warm and dry. Neurological: Mental Status: He is alert. Assessment: No diagnosis found. Plan: Assessment seems to be consistent with gout Orders Placed This Encounter Medications predniSONE (DELTASONE) 50 MG tablet Sig: Take 1 tablet by mouth daily for 5 days Dispense: 5 tablet Refill: 0 If pain persists complete xray of foot to assess for spur or injury Call office if symptoms do not resolve, or if they worsen / recur documented in this encounter Plan of Treatment DateTypeDepartmentCare Team (Latest Contact Info)Htbmkftmdvw48/23/2026 4:30 PM ESTOffice Visit Nash Farnsworth MD [facility] [address] [place] [address] Kody Farnsworth MD [address] [place] [address] Annual Wellness visit, f/u labs.NameTypePriorityAssociated DiagnosesOrder ScheduleXR FOOT LEFT (MIN 3 VIEWS)ImagingRoutine Left foot pain Expected: 05/19/2025, Expires: 05/19/2026documented as of this encounter Visit Diagnoses Diagnosis Left foot pain- Primary Pain in limb documented in this encounter Care Teams Team MemberRelationshipSpecialtyStart DateEnd Date Kody Farnsworth MD [address] [place] [address] PCP - GeneralInternal Medicine08/10/15documented as of this encounter
--- NOTE | 2025-05-23 | XR_ITS ---
The [address] [address] Patient Name: WAYLON MADRIGAL MRN: [id number] date: 1970 Sex: M Assigned Patient Location: [facility] Current Patient Location: Accession/Order Number: [id number] Exam Date: 05/23/2025 16:04 Report Date: 05/24/2025 10:13 At the request of: NON-STAFF PHYSICIAN MD Procedure: XR foot LT min 3V LEFT FOOT - 3 views CLINICAL DATA: Left heel pain COMPARISON: None AP, lateral and oblique views were obtained. There is no evidence of fracture or dislocation. There are no significant soft tissue abnormalities. XR/XR foot LT min 3V IMPRESSION: NO ACUTE BONY FINDINGS. Impression dictated by: Mar Austin M.D. 05/24/2025 10:13 AM Dictation Location: [place] [address] Electronically authenticated by: [id number] Y Date: 05/24/2025 10:13
--- OUTSIDE RECORDS SUMMARY | 2025-05-23 16:02 | XMS_ITS | Patient Health Record ---
Author Organization [facility] Address [address] [place] [address] Care Team Providers Care Straightener And Aligner Name Role Phone Daja COE, [place] Primary Care Provider Kristopher Sergio Lam Unavailable [phone] Lamin Nava Unavailable Unavailable Allergies No Known Allergies Reason For Referral No Information Medications Medication SIG (Take, Route, Frequency, Duration) Notes Start Date End Date Status aspirin Activelisinopril-hydrochlorothiazideActiveMobic 15 mg1 tab(s) orally once a day; Duration: 45 days07/26/2022ctive Social History Tobacco Use: Social History Observation Description Date Details (start date - stop date) Never Smoker NA - NA Smoking History Question Answer Notes Smoking Status NonSmoker Problems Problem Type SNOMED Code ICD Code Onset Dates Problem Status W/U Status Risk Notes Problem Acute pain of left knee (M25.562)ActiveconfirmedProblemAcute tear of medial meniscus of left knee (disorder) (82816556445796296)Tear of medial meniscus of left knee, current, unspecified tear type, subsequent encounter (S83.242D)Active confirmedProblemChondromalacia (12233534)Chondromalacia, 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
--- OUTSIDE RECORDS SUMMARY | 2025-05-23 16:02 | XMS_ITS | Clinical Summary ---
Author Organization [facility] Address [address], [address] [place] [address] Care Team Providers Care Box Worker Name Role Phone Kody Farnsworth MD Primary Care Provider [phone] Allergies No known active allergies Medications MedicationSigDispense QuantityRefillsLast FilledStart DateEnd DateStatus aspirin 81 MG tablet Take 1 tablet by mouth dailyActive fluticasone (FLONASE) 50 MCG/ACT nasal spray 1 spray by Nasal route dailyActive omeprazole (PRILOSEC) 20 MG capsule Take 1 capsule by mouth as neededActive Fexofenadine-Pseudoephedrine (HOANG-D PO) Take by mouth daily as neededActive lisinopril-hydroCHLOROthiazide (PRINZIDE;ZESTORETIC) 20-25 MG per tablet Take 1 tablet by mouth daily 90 tablet 5Active NONFORMULARY Take 1 tablet by mouth daily Sour marquis extract for gout5Active predniSONE (DELTASONE) 50 MG tablet Take 1 tablet by mouth daily for 5 days 5 tablet 5Active Active Problems ProblemNoted DateDiagnosed DateNon-recurrent bilateral inguinal hernia without obstruction or nqhwyrdk90/14/2021llergic rhinitisGERD (gastroesophageal reflux disease)Hypertension Resolved Problems ProblemNoted DateDiagnosed DateResolved DateColon cancer oyrrfckcz62/23/2019 01/03/2019 Encounters DateTypeDepartmentCare LzyvRypsdribspu02/18/2025 3:45 PM ESTOffice Visit [facility] [address] [place] [address] Carissa Forrester, [employer] 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 (Primary Dx)04/18/2025 4:00 PM ESTOffice Visit [facility] [address] [place] [address] Kody Farnsworth MD Routine general medical examination at a health care facility (Primary Dx); Essential hypertension, benign; Elevated LFTs; Gastroesophageal reflux disease without esophagitis; Screening PSA (prostate specific antigen)04/11/2025Results Follow-Up [facility] [address] [place] [address] Kody Farnsworth MD from Last 3 Months Immunizations ImmunizationAdministration DatesNext DueTDaP, ADACEL (age 10y-64y), BOOSTRIX (age 10y+), IM, 0.5mL11/12/20185988Msfrgkg80/01/2009 Family History Medical HistoryRelationNameCommentsHigh CholesterolFatherCancerMotherbreastHigh Blood PressureMotherRelationNameStatusCommentsFatherMother Social History Tobacco UseTypesPacks/DayYears UsedDateSmoking Tobacco: NeverSmokeless [...] steady place to sleep or slept in [place] (including now)?No 12/09/2022Housing Stability Vital SignAnswerDate RecordedIn the last 12 months, was there a time when you were not able to pay the mortgage or rent on time?No 04/18/2025Number of Times Moved in the Last YearNot on file04/18/2025t any time in the past 12 months, were you homeless or living in a mcc (including now)? No04/18/2025Hunger Vital SignAnswerDate RecordedWithin the [...] RecordedIn the past 12 months has the [employer], gas, oil, or water [employer] threatened to shut off services in your home?No04/18/2025Sex and Gender InformationValueDate RecordedSex Assigned at DezynYqzx69/13/2021 5:13 PM ESTLegal HirPeep8107/12/2012 1:18 PM ESTGender ItfkmbilUizv81/13/2021 5:13 PM EST Sexual SylsfffummzRqbcqyfo35/13/2021 5:13 PM EST Last Filed Vital Signs Vital SignReadingTime TakenCommentsBlood Gvneatzo272/8805/19/2025 3:36 PM EST Lopxh352205/19/2025 3:36 PM XGKLcgepbfcyni25.9 ??C (98.5 ??F)05/19/2025 3:36 PM ESTRespiratory Hgmo654710/29/2023 2:34 PM EDTOxygen Vzhdwesxij42%05/19/2025 3:36 PM ESTInhaled Oxygen Concentration--Bqlqqz626.3 kg (225 lb 9.6 oz)05/19/2025 3:36 PM DZHGnsxlk774.3 cm (5' 11 )05/19/2025 3:36 PM ESTBody Mass Index31.46 05/19/2025 3:36 PM EST Plan of Treatment DateTypeDepartmentCare Team (Latest Contact Info)Jhxtyrzcoau00/23/2026 4:30 PM ESTOffice Visit [facility] [address] [place] [phone] Kody Farnsworth MD [address] [place] [address] Annual Wellness visit, f/u labs.Health MaintenanceDue DateLast DoneComments Hepatitis C zewfoa9405/18/1986Hepatitis B vaccine (1 of 3 - 19+ 3-dose series) 1987FIT/FOBT: Average risk2013Fecal-DNA (Cologuard): Average risk 2013Sigmoidoscopy/CT ckzlonenmvmh30/17/2013Pneumococcal 50+ years Vaccine (1 of 1 - PCV)2018Shingles vaccine (1 of 2)2018Flu vaccine (#1) 5COVID-19 Vaccine (2 - season)/epression Ybmaqi026106/18/2024, 04/18/2025DTaP/Tdap/Td vaccine (2 - Td or Tdap) /2589Qmwxsyjoors30Colorectal Cancer Screen 12/07/20280713Bvthhq74, 03/31/2024, 09/23/2023, Additional history existsHIV jtptfoNnbcgahxn50/01/2016Hepatitis A vaccineAged OutNo longer eligible based on patient's age to complete this topicHib vaccineAged OutNo longer eligible based on patient's age to complete this topicMeningococcal (ACWY) vaccineAged OutNo longer eligible based on patient's age to complete this topic Meningococcal B vaccineAged OutNo longer eligible based on patient's age to complete this topicPolio vaccineAged OutNo longer eligible based on patient's age to complete this topic Medical Devices ImplantedTypeAreaManufacturerDevice IdentifierShelf Expiration DateModel / Serial / LotMesh Maria A L [id number] R Inguinal Wht Polypr Mfil Implanted:Qty: 1 on 06/15/2020 by Norma M[facility]quez I DO at [facility]-WD04/[id number] / / [id number] Maria A L [id number] L Inguinal Wht Polypr Mfil Implanted:Qty: 1 on 06/15/2020 by Norma M[facility]quez I DO at [facility]12/27/[id number] / / [id number] Procedures Procedure NamePriorityDate/TimeAssociated DiagnosisCommentsLIPID PANELRoutine 09/23/2023 Dyspnea on exertion from Last 3 Months or Most Recently Relevant to Health Maintenance Insurance * Guarantor: Deniz Gonzales TypeRelation to PatientDate of BirthPhone Billing AddressPersonal/QlecaaAxap1970 [address] [address] * Guarantor: Deniz Gonzalescount TypeRelation to PatientDate of BirthPhone Billing AddressPersonal/WxaukuCmwf1970 [address] [address] * Guarantor: Deniz Gonzales PAccount TypeRelation to PatientDate of BirthPhone Billing AddressPersonal/SvftsvVnmv1970 [address] [address] * Guarantor: Deniz Gonzales PAccount TypeRelation to PatientDate of BirthPhone Billing AddressPersonal/NsbrdlTyyd1970 [address] [address] Care Teams Team MemberRelationshipSpecialtyStart DateEnd Date Kody Farnsworth MD [address] [place] [address] PCP - GeneralInternal Medicine08/10/15
--- OUTSIDE RECORDS SUMMARY | 2025-05-23 16:02 | XMS_ITS | Clinical Summary ---
Author Organization [facility] Address [address] [facility] [place] [address] Care Team Providers Care Oyster Grader Name Role Phone Unavailable Primary Care Provider Unavailabl e Allergies No known active allergies Social History Tobacco UseTypesPacks/DayYears UsedDateSmoking Tobacco: Never AssessedSex and Gender InformationValueDate RecordedSex Assigned at BirthNot on fileLegal Sex Male09/15/2023 3:39 PM EDTGender IdentityNot on fileSexual OrientationNot on file Plan of Treatment Not on file Insurance
== END 2025-05-23 15:57 | disposition home or self-care (01) ==
LOC: RAD 15:58
PROVIDERS: PCP Internal Medicine
DX: M79.672 Pain in left foot (principal)
CPT/HCPCS: 73630